=== PATIENT | male | born 1980 | race Hispanic/Latino ===

== ENCOUNTER 2017-08-29 05:50 | Emergency (ER) | payer SELFPAY ==
[2017-08-29] MEDS ORDERED: KETOROLAC TROMETHAMINE 30MG/ML ONE (06:17)
[2017-08-29] MEDS ORDERED: SODIUM CHLORIDE 0.9% 1000ML 1,000 ML IV ONE (06:17)
[2017-08-29] MEDS ORDERED: ONDANSETRON HCL 4 MG/2 ML VIAL ONE (06:17)
[2017-08-29 06:45] LABS: BASOPHILS % (AUTO) 0.2 % (0.0-5.0); HEMATOCRIT 38.3 % (42-54); LYMPHOCYTES % (AUTO) 11.9 % (21.0-51.0); MEAN CORPUSCULAR HEMOGLOBIN 30.4 pg (27.0-33.0); MEAN CORPUSCULAR HGB CONC 34.6 g/dL (32.0-36.0); MEAN CORPUSCULAR VOLUME 87.9 fL (79-99); MONOCYTES % (AUTO) 6.6 % (3.0-13.0); NEUTROPHILS % (AUTO) 80.3 % (40.0-77.0); PLATELET COUNT (AUTO) 256 K/uL (130-400); RED BLOOD CELL COUNT(AUTO) 4.36 MIL/uL (4.50-6.20); RED CELL DISTRIBUTION WIDTH 13.1 % (11.0-15.5); WHITE BLOOD COUNT (AUTO) 10.1 K/uL (4.8-10.8)
[2017-08-29 06:45] LABS: BILIRUBIN,URINE NEGATIVE (NEGATIVE); GLUCOSE, URINE (UA) 100 mg/dL (NEGATIVE); KETONES,URINE NEGATIVE (NEGATIVE); LEUKOCYTE ESTERASE ,URINE NEGATIVE (NEGATIVE); NITRATE,URINE NEGATIVE (NEGATIVE); OCCULT BLOOD,URINE NEGATIVE (NEGATIVE); PROTEIN,URINE NEGATIVE (NEGATIVE); UROBILINOGEN,URINE 0.2 mg/dL (0.2-1.0)
[2017-08-29 06:51] LABS: AMPHET/METH SCREEN,URINE NEGATIVE (NEGATIVE); BARBITURATE SCREEN, URINE NEGATIVE (NEGATIVE); BENZODIAZEPINES SCREEN,URINE NEGATIVE (NEGATIVE); CANNABINOID SCREEN,URINE NEGATIVE (NEGATIVE); COCAINE SCREEN,URINE NEGATIVE (NEGATIVE); OPIATE SCREEN,URINE NEGATIVE (NEGATIVE); PHENCYCLIDINE SCREEN,URINE NEGATIVE (NEGATIVE)
[2017-08-29 06:52] LABS: CREATININE 0.9 mg/dL (0.5-1.5); POTASSIUM 3.5 mmol/L (3.5-5.1)
[2017-08-29 06:58] LABS: ALBUMIN 3.4 g/dL (3.5-5.0); BILIRUBIN,DIRECT 0.1 mg/dL (0.0-0.3); BILIRUBIN,TOTAL 0.3 mg/dL (0.2-1.0)
[2017-08-29 07:16] LABS: APPEARANCE,URINE CLEAR (CLEAR); COLOR,URINE YELLOW (YELLOW)
[2017-08-29 07:27] LABS: AMORPHOUS SEDIMENT,UR Moderate /LPF (None Seen); BACTERIA,URINE Few /HPF (None Seen); RBC,URINE 0-1 /HPF (0-1); SQUAMOUS EPITHELIAL CELL,UR Rare /LPF (0-2); WBC,URINE None Seen /HPF (0-1)
[2017-08-29] MEDS ORDERED: LIDOCAINE HCL 2% VISCOUS 15 ML UDCUP ONE (08:28)
[2017-08-29] MEDS ORDERED: MAG HYDROX/AL HYDROX/SIMETH ES 30 ML SUSP UDCUP ONE (08:28)
[2017-08-29] MEDS ORDERED: FAMOTIDINE/PF 20 MG/2 ML VIAL IV ONE (09:27)
== END 2017-08-29 10:48 | disposition home or self-care (01) ==
LOC: EDH 05:50
DX: R10.13 Epigastric pain (principal); Z72.0 Tobacco use
CPT/HCPCS: 36415; 76705; 80048; 80076; 80305; 81001; 83690; 85025; 93005; 96361; 96374; 96375; 99285; J1885; J2405; J3490; J7030

== ENCOUNTER 2020-01-01 14:16 | Inpatient (IN) | payer OTHER, SELFPAY ==
[~2020-01-01] VITALS: Ht 185.4 cm; Wt 167.6 kg
[2020-01-01 14:52] LABS: BASOPHILS % (AUTO) 0.1 % (0.0-5.0); EOSINOPHILS % (AUTO) 1.4 % (0.0-8.0); HEMATOCRIT 41.9 % (42-54); LYMPHOCYTES % (AUTO) 11.5 % (21.0-51.0); MEAN CORPUSCULAR HEMOGLOBIN 29.6 pg (27.0-33.0); MEAN CORPUSCULAR HGB CONC 33.4 g/dL (32.0-36.0); MEAN CORPUSCULAR VOLUME 88.6 fL (79-99); MONOCYTES % (AUTO) 6.5 % (3.0-13.0); NEUTROPHILS % (AUTO) 79.8 % (40.0-77.0); PLATELET COUNT (AUTO) 325 K/uL (130-400); RED BLOOD CELL COUNT(AUTO) 4.73 MIL/uL (4.50-6.20); RED CELL DISTRIBUTION WIDTH 12.8 % (11.0-15.5); WHITE BLOOD COUNT (AUTO) 7.2 K/uL (4.8-10.8)
[2020-01-01 15:03] LABS: INR 0.95 (0.85-1.15); PARTIAL THROMBOPLASTIN TIME 28.3 SEC (26.3-35.5); PROTHROMBIN TIME 10.3 SEC (9.6-11.6)
[2020-01-01 15:11] LABS: CARBON DIOXIDE 31 mmol/L (21-32); CHLORIDE 100 mmol/L (101-111); CREATININE 0.7 mg/dL (0.5-1.5); GLOMERULAR FILTR. RATE CALC 133 mL/min (>60); GLUCOSE,RANDOM 141 mg/dL (70-105); POTASSIUM 3.6 mmol/L (3.5-5.1); SODIUM SERUM 138 mmol/L (136-145); UREA NITROGEN, BLOOD 7 mg/dL (7-18)
[2020-01-01 15:22] LABS: APPEARANCE,URINE Clear (CLEAR); BILIRUBIN,URINE Small (NEGATIVE); COLOR,URINE Dark Yellow (YELLOW); GLUCOSE, URINE (UA) Negative (NEGATIVE); KETONES,URINE Trace mg/dL (NEGATIVE); LEUKOCYTE ESTERASE ,URINE Trace (NEGATIVE); NITRATE,URINE Negative (NEGATIVE); OCCULT BLOOD,URINE Negative (NEGATIVE); PROTEIN,URINE Trace mg/dL (NEGATIVE)
[2020-01-01 15:24] LABS: ALANINE AMINOTRANSFERASE 78 U/L (12-78); ALBUMIN 2.9 g/dL (3.5-5.0); ASPARTATE AMINOTRANSFERASE 44 U/L (10-37); BILIRUBIN,TOTAL 0.5 mg/dL (0.2-1.0); CREATINE KINASE, TOTAL 74 U/L (21-232); MYOGLOBIN 29 ng/mL (10-92); TOTAL PROTEIN, SERUM 7.7 g/dL (6.0-8.3); TROPONIN I < 0.04 ng/mL (0.00-0.06)
[2020-01-01 15:30] LABS: BACTERIA,URINE Rare /HPF (None Seen); MUCUS,URINE Rare LPF (None Seen); RBC,URINE 0-1 /HPF (0-1); SQUAMOUS EPITHELIAL CELL,UR Rare /HPF (0-2)
[2020-01-01 16:55] LABS: ABG BASE EXCESS 2.3 mmol/L (-2.0-3.0); ABG HCO3 24.6 mmol/L (21.0-28.0); ABG OXYGEN SATURATION 96.3 % (95.0-99.0); ABG PCO2 32 mmHg (35-48)
[2020-01-01] MEDS ORDERED: ACETAMINOPHEN EXTRA STRENGTH 500 MG TABLET ONE (17:49)
[2020-01-01] MEDS ORDERED: ACETAMINOPHEN 325 MG TAB PO PRN ×2 (19:00)
[2020-01-01] MEDS: CEFTRIAXONE SODIUM 1 GM IVP SCH (19:00)
[2020-01-01] MEDS ORDERED: DOXYCYCLINE 100MG+NS 250ML IV SCH (19:00)
[2020-01-01] MEDS ORDERED: ERGOCALCIFEROL (VITAMIN D2) 50,000 UNIT CAPSULE PO ONE (20:15)
[2020-01-01] MEDS ORDERED: DOXYCYCLINE HYCLATE 100 MG TABLET PO ONE (20:17)
[2020-01-01] MEDS ORDERED: CEFTRIAXONE SODIUM 1 GM ONE (20:18)
[2020-01-01] MEDS ORDERED: ENOXAPARIN SODIUM 40 MG/0.4 ML SYRINGE SQ ONE (20:18)
[2020-01-01] MEDS ORDERED: ERGOCALCIFEROL (VITAMIN D2) 50,000 UNIT CAPSULE ONE (20:18)
[2020-01-01] MEDS ORDERED: FAMOTIDINE/PF 20 MG/2 ML VIAL IV ONE (20:19)
[2020-01-01] MEDS: DOXYCYCLINE HYCLATE 100 MG TABLET PO SCH (21:00)
[2020-01-01] MEDS: FAMOTIDINE/PF 20 MG/2 ML VIAL IV SCH (21:00)
[2020-01-01 22:58] LABS: HEMOGLOBIN A1C 6.6 % (4.0-6.0)
[2020-01-02 05:25] LABS: BASOPHILS % (AUTO) 0.1 % (0.0-5.0); EOSINOPHILS % (AUTO) 1.9 % (0.0-8.0); HEMATOCRIT 40.1 % (42-54); LYMPHOCYTES % (AUTO) 12.5 % (21.0-51.0); MEAN CORPUSCULAR HEMOGLOBIN 28.8 pg (27.0-33.0); MEAN CORPUSCULAR HGB CONC 32.4 g/dL (32.0-36.0); MEAN CORPUSCULAR VOLUME 88.7 fL (79-99); MONOCYTES % (AUTO) 6.1 % (3.0-13.0); NEUTROPHILS % (AUTO) 78.6 % (40.0-77.0); PLATELET COUNT (AUTO) 326 K/uL (130-400); RED BLOOD CELL COUNT(AUTO) 4.52 MIL/uL (4.50-6.20); RED CELL DISTRIBUTION WIDTH 12.6 % (11.0-15.5); WHITE BLOOD COUNT (AUTO) 7.2 K/uL (4.8-10.8)
[2020-01-02 06:02] LABS: ALBUMIN 2.6 g/dL (3.5-5.0); BILIRUBIN,TOTAL 0.3 mg/dL (0.2-1.0); CREATININE 0.9 mg/dL (0.5-1.5); CRP QUANTITATIVE 121.7 mg/L (0.00-9.0); POTASSIUM 3.5 mmol/L (3.5-5.1); TOTAL PROTEIN, SERUM 7.4 g/dL (6.0-8.3)
[2020-01-02] MEDS: CEFTRIAXONE SODIUM 1 GM IVP SCH (07:00)
[2020-01-02] MEDS ORDERED: ENOXAPARIN SODIUM 40 MG/0.4 ML SYRINGE SQ SCH (09:00)
[2020-01-02] MEDS: DOXYCYCLINE HYCLATE 100 MG TABLET PO SCH (09:00)
[2020-01-02] MEDS: ASCORBIC ACID 500 MG TAB PO SCH (09:00)
[2020-01-02] MEDS: FAMOTIDINE/PF 20 MG/2 ML VIAL IV SCH (09:00)
[2020-01-02] MEDS ORDERED: ASCORBIC ACID 500 MG TAB ONE (09:20)
[2020-01-02] MEDS ORDERED: ZINC SULFATE 220 CAPSULE ONE (09:21)
[2020-01-02] MEDS ORDERED: CEFTRIAXONE SODIUM 1 GM ONE (09:21)
[2020-01-02] MEDS ORDERED: FAMOTIDINE/PF 20 MG/2 ML VIAL IV ONE (09:29)
[2020-01-02] MEDS ORDERED: DOXYCYCLINE HYCLATE 100 MG TABLET PO ONE (10:01)
[2020-01-02] MEDS: ZINC SULFATE 220 CAPSULE PO SCH (12:00)
[2020-01-02] MEDS ORDERED: ERGOCALCIFEROL (VITAMIN D2) 50,000 UNIT CAPSULE ONE (16:08)
--- NOTE | 2020-01-02 19:09 | NUR ---
D/C PLAN CM spoke to pt regarding d/c planning. Pt is ind. with ADL's and lives with mother. States mother can assist in care as needed. Plan is to return to home. CM to follow up for possible home o2 needs. Addendum: 01/02/20 at 1911 by KHALIF PINEDA CM Amended: Links added.
[2020-01-03 05:56] LABS: BASOPHILS % (AUTO) 0.3 % (0.0-5.0); EOSINOPHILS % (AUTO) 2.1 % (0.0-8.0); HEMATOCRIT 39.9 % (42-54); LYMPHOCYTES % (AUTO) 11.9 % (21.0-51.0); MEAN CORPUSCULAR HEMOGLOBIN 29.4 pg (27.0-33.0); MEAN CORPUSCULAR HGB CONC 32.8 g/dL (32.0-36.0); MEAN CORPUSCULAR VOLUME 89.7 fL (79-99); MONOCYTES % (AUTO) 6.7 % (3.0-13.0); NEUTROPHILS % (AUTO) 78.1 % (40.0-77.0); PLATELET COUNT (AUTO) 369 K/uL (130-400); RED BLOOD CELL COUNT(AUTO) 4.45 MIL/uL (4.50-6.20); RED CELL DISTRIBUTION WIDTH 12.5 % (11.0-15.5); WHITE BLOOD COUNT (AUTO) 7.7 K/uL (4.8-10.8)
[2020-01-03 06:38] LABS: ALBUMIN 2.7 g/dL (3.5-5.0); BILIRUBIN,TOTAL 0.4 mg/dL (0.2-1.0); CREATININE 0.8 mg/dL (0.5-1.5); POTASSIUM 3.3 mmol/L (3.5-5.1); TOTAL PROTEIN, SERUM 7.2 g/dL (6.0-8.3)
[2020-01-03] MEDS: ASCORBIC ACID 500 MG TAB PO SCH (09:00)
[2020-01-03] MEDS: ENOXAPARIN SODIUM 80 MG/0.8 ML SQ SCH (09:00)
[2020-01-03] MEDS ORDERED: ZINC SULFATE 220 CAPSULE ONE (09:27)
[2020-01-03] MEDS ORDERED: ASCORBIC ACID 500 MG TAB ONE (09:27)
[2020-01-03] MEDS ORDERED: CEFTRIAXONE SODIUM 1 GM ONE (09:27)
[2020-01-03] MEDS ORDERED: DOXYCYCLINE HYCLATE 100 MG TABLET PO ONE ×2 (09:27→21:11)
[2020-01-03] MEDS ORDERED: SODIUM CHLORIDE 0.9% 100 ML IV ONE (09:28)
[2020-01-03] MEDS: ZINC SULFATE 220 CAPSULE PO SCH (12:00)
[2020-01-03] MEDS ORDERED: FAMOTIDINE/PF 20 MG/2 ML VIAL IV ONE (21:11)
[2020-01-03] MEDS ORDERED: ENOXAPARIN SODIUM 40 MG/0.4 ML SYRINGE SQ ONE (21:11)
[2020-01-03] MEDS ORDERED: ACETAMINOPHEN 325 MG TAB ONE (21:13)
[2020-01-04] MEDS: CEFTRIAXONE SODIUM 1 GM IVP SCH ×2 (07:00→20:28)
[2020-01-04 07:20] LABS: BASOPHILS % (AUTO) 0.1 % (0.0-5.0); EOSINOPHILS % (AUTO) 1.4 % (0.0-8.0); HEMATOCRIT 41.6 % (42-54); LYMPHOCYTES % (AUTO) 9.2 % (21.0-51.0); MEAN CORPUSCULAR HEMOGLOBIN 29.2 pg (27.0-33.0); MEAN CORPUSCULAR HGB CONC 32.9 g/dL (32.0-36.0); MEAN CORPUSCULAR VOLUME 88.7 fL (79-99); MONOCYTES % (AUTO) 7.4 % (3.0-13.0); NEUTROPHILS % (AUTO) 80.9 % (40.0-77.0); PLATELET COUNT (AUTO) 457 K/uL (130-400); RED BLOOD CELL COUNT(AUTO) 4.69 MIL/uL (4.50-6.20); RED CELL DISTRIBUTION WIDTH 12.8 % (11.0-15.5); WHITE BLOOD COUNT (AUTO) 9.3 K/uL (4.8-10.8)
[2020-01-04] MEDS ORDERED: ENOXAPARIN SODIUM 80 MG/0.8 ML SQ ONE (07:43)
[2020-01-04] MEDS ORDERED: ASCORBIC ACID 500 MG TAB ONE (07:43)
[2020-01-04] MEDS ORDERED: CEFTRIAXONE SODIUM 1 GM ONE (07:44)
[2020-01-04] MEDS ORDERED: FAMOTIDINE/PF 20 MG/2 ML VIAL IV ONE (07:44)
[2020-01-04 08:00] LABS: ALBUMIN 2.8 g/dL (3.5-5.0); BILIRUBIN,TOTAL 0.5 mg/dL (0.2-1.0); CREATININE 0.7 mg/dL (0.5-1.5); CRP QUANTITATIVE 118.3 mg/L (0.00-9.0); POTASSIUM 3.5 mmol/L (3.5-5.1); TOTAL PROTEIN, SERUM 7.5 g/dL (6.0-8.3)
[2020-01-04] MEDS: ASCORBIC ACID 500 MG TAB PO SCH (09:00)
[2020-01-04] MEDS: FAMOTIDINE/PF 20 MG/2 ML VIAL IV SCH ×2 (09:00→20:28)
[2020-01-04] MEDS: DOXYCYCLINE HYCLATE 100 MG TABLET PO SCH ×2 (09:00→20:28)
[2020-01-04] MEDS: ENOXAPARIN SODIUM 80 MG/0.8 ML SQ SCH (09:00)
[2020-01-04 12:00] VITALS: BP 167/109
[2020-01-04] MEDS: ZINC SULFATE 220 CAPSULE PO SCH (12:00)
[2020-01-04] MEDS: HYDRALAZINE HCL 20 MG/ML VIAL IV PRN (13:55)
[2020-01-04 16:00] VITALS: BP 111/78
--- NOTE | 2020-01-04 18:56 | NUR ---
PAGED HOSPITALIST ANSWERING SERVICE. ADAM MAIN ELEVATOR OPERATOR. WAITING FOR CALL BACK TO REPORT SUSTAINED TACHYCARDIA OF 137.
--- NOTE | 2020-01-04 19:14 | NUR ---
called tele monitor, ST [address].
[2020-01-04 19:58] VITALS: BP 135/75
--- NOTE | 2020-01-04 20:00 | NUR ---
PM ASSESSMENT PATIENT RESTING IN BED AAOX3 HAVING COUGHING SPELLS FROM TIME TO TIME. PATIENT STATES HE HAS TACHYCARDIA MOST OF THE TIME AND TELE MONITOR STATES PATIENT IS RUNNING IN THE 130'S. A PAGE SENT OUT FOR ADAM HOOPER.
--- NOTE | 2020-01-04 21:02 | NUR ---
CALL BACK ADAM MAIN MEAT HANGER CALLED BACK FOR PAGE SHE WAS INFORMED OF PATIENT'S TACHYCARDIA WITH NO CHEST PAIN. PATIENT AWAKE AND ALERT DOES HAVE COUGHING SPELLS AT TIMES AND DOES NOT HAVE A FEVER AT THIS TIME. NO NEW ORDERS GIVEN.
[2020-01-04] MEDS: GUAIFENESIN-DM 200/20 MG 10 ML PO PRN (22:40)
[2020-01-04] MEDS ORDERED: HYDROMORPHONE HCL 2 MG/ML VIAL ONE (23:28)
[2020-01-04 23:48] VITALS: BP 128/82
[2020-01-05] MEDS ORDERED: KETOROLAC TROMETHAMINE 15MG/ML IV PRN (00:30)
[2020-01-05] MEDS ORDERED: GLUCAGON 1MG KIT 1 MG ML IM PRN (01:30)
[2020-01-05] MEDS ORDERED: DEXTROSE 50%-WATER 50 ML DISP.SYRIN IV PRN (01:30)
[2020-01-05 03:36] VITALS: BP 125/89
[2020-01-05 05:15] LABS: BASOPHILS % (AUTO) 0.2 % (0.0-5.0); EOSINOPHILS % (AUTO) 1.6 % (0.0-8.0); HEMATOCRIT 40.7 % (42-54); LYMPHOCYTES % (AUTO) 14.6 % (21.0-51.0); MEAN CORPUSCULAR HEMOGLOBIN 29.6 pg (27.0-33.0); MEAN CORPUSCULAR HGB CONC 33.2 g/dL (32.0-36.0); MEAN CORPUSCULAR VOLUME 89.3 fL (79-99); MONOCYTES % (AUTO) 8.6 % (3.0-13.0); NEUTROPHILS % (AUTO) 73.1 % (40.0-77.0); PLATELET COUNT (AUTO) 457 K/uL (130-400); RED BLOOD CELL COUNT(AUTO) 4.56 MIL/uL (4.50-6.20); RED CELL DISTRIBUTION WIDTH 12.7 % (11.0-15.5)
[2020-01-05 05:36] LABS: ALBUMIN 2.6 g/dL (3.5-5.0); BILIRUBIN,TOTAL 0.8 mg/dL (0.2-1.0); CREATININE 0.8 mg/dL (0.5-1.5); CRP QUANTITATIVE 126.6 mg/L (0.00-9.0); POTASSIUM 3.5 mmol/L (3.5-5.1); TOTAL PROTEIN, SERUM 7.4 g/dL (6.0-8.3)
[2020-01-05] MEDS: INSULIN HUMULIN R 100 UNIT/ML 3ML SQ SCH ×4 (05:38→20:59)
[2020-01-05 08:30] VITALS: BP 137/86
[2020-01-05] MEDS: DOXYCYCLINE HYCLATE 100 MG TABLET PO SCH ×2 (08:52→20:58)
[2020-01-05] MEDS: FAMOTIDINE/PF 20 MG/2 ML VIAL IV SCH ×2 (08:52→20:58)
[2020-01-05] MEDS: ASCORBIC ACID 500 MG TAB PO SCH (08:52)
[2020-01-05] MEDS: ENOXAPARIN SODIUM 80 MG/0.8 ML SQ SCH (08:53)
[2020-01-05] MEDS: DEXAMETHASONE SOD PHOSPHATE 4 MG/ML 1ML VIAL IVP SCH ×2 (10:22→20:58)
[2020-01-05 12:00] VITALS: BP 145/82
[2020-01-05] MEDS: ZINC SULFATE 220 CAPSULE PO SCH (12:35)
[2020-01-05 17:17] VITALS: BP 169/116
[2020-01-05] MEDS ORDERED: BENZONATATE 100 MG CAPSULE PO PRN (17:45)
[2020-01-05] MEDS: ACETYLCYSTEINE 600 MG CAPSULE PO SCH ×2 (18:56→20:58)
[2020-01-05 20:00] VITALS: BP 172/103
[2020-01-05 23:44] VITALS: BP 157/100
[2020-01-06] MEDS: GUAIFENESIN-DM 200/20 MG 10 ML PO PRN (00:02)
[2020-01-06] MEDS: HYDRALAZINE HCL 20 MG/ML VIAL IV PRN (00:02)
[2020-01-06 03:44] VITALS: BP 161/92
[2020-01-06] MEDS: INSULIN HUMULIN R 100 UNIT/ML 3ML SQ SCH (05:26)
[2020-01-06 06:15] LABS: BASOPHILS % (AUTO) 0.1 % (0.0-5.0); LYMPHOCYTES % (AUTO) 11.3 % (21.0-51.0); MEAN CORPUSCULAR HGB CONC 33.2 g/dL (32.0-36.0); MEAN CORPUSCULAR VOLUME 87.4 fL (79-99); MONOCYTES % (AUTO) 3.1 % (3.0-13.0); NEUTROPHILS % (AUTO) 83.7 % (40.0-77.0); PLATELET COUNT (AUTO) 554 K/uL (130-400); RED BLOOD CELL COUNT(AUTO) 4.69 MIL/uL (4.50-6.20); RED CELL DISTRIBUTION WIDTH 12.5 % (11.0-15.5); WHITE BLOOD COUNT (AUTO) 7.4 K/uL (4.8-10.8)
[2020-01-06 06:31] LABS: ALBUMIN 2.8 g/dL (3.5-5.0); BILIRUBIN,TOTAL 0.3 mg/dL (0.2-1.0); CREATININE 0.7 mg/dL (0.5-1.5); CRP QUANTITATIVE 94.4 mg/L (0.00-9.0); POTASSIUM 3.9 mmol/L (3.5-5.1)
[2020-01-06] MEDS: ACETYLCYSTEINE 600 MG CAPSULE PO SCH (08:00)
[2020-01-06] MEDS: ENOXAPARIN SODIUM 80 MG/0.8 ML SQ SCH (08:00)
[2020-01-06] MEDS: DOXYCYCLINE HYCLATE 100 MG TABLET PO SCH (08:00)
[2020-01-06] MEDS: ASCORBIC ACID 500 MG TAB PO SCH (08:00)
[2020-01-06] MEDS: FAMOTIDINE/PF 20 MG/2 ML VIAL IV SCH (08:00)
[2020-01-06] MEDS: DEXAMETHASONE SOD PHOSPHATE 4 MG/ML 1ML VIAL IVP SCH (08:01)
--- NOTE | 2020-01-06 09:00 | NUR ---
PATIENT LEFT AMA. HE STATED THAT HE DIDN'T WANT TO GET POKED AGAIN WITH THE LOVENOX, HE WAS FEELING BETTER. PATIENT WAS IN RA WITH O2 SAT 97%. HE CONTINUE TO COUGH A LOT AND HAD LOW GRADE FEVERS OVERNIGHT. I ADVICE HIM TO AT LEAST STAY HOME FOR 10 MORE DAYS. PATIENT AGREED.
== END 2020-01-06 09:07 | disposition left against medical advice (07) | DRG 177 ==
LOC: EDH 14:16 → EDHIP 14:17 → UNDOADMIN 18:58 → 4DH 01-04 12:11
PROVIDERS: ADMIT Internal Medicine; ATTEND Internal Medicine
DX: U07.1 COVID-19 (principal); J12.89 Other viral pneumonia; Z68.42 Body mass index [BMI] 45.0-49.9, adult; E66.01 Morbid (severe) obesity due to excess calories; Z53.29 Procedure and treatment not carried out because of patient's decision for other reasons; G47.33 Obstructive sleep apnea (adult) (pediatric); Z87.891 Personal history of nicotine dependence
CPT/HCPCS: 36415; 36600; 71045; 80053; 81001; 82550; 82728; 82803; 82948; 83036; 83605; 83615; 83874; 83880; 84145; 84484; 85025; 85378; 85610; 85730; 86140; 87040; 87088; 87804; 93005; G0378; J0360; J0696; J1100; J1170; J1650; J3490; U0003